=== PATIENT | female | born 1945 | race Caucasian/White ===

== ENCOUNTER 2023-09-20 20:21 | Inpatient (IN) | payer MEDICAID, MEDICARE ==
[~2023-09-20] VITALS: Ht 142.2 cm; Wt 124.7 kg
[2023-09-20 20:22] VITALS: BP 130/60; PULSE 100; RESP 24; TEMP 98.3; O2SAT 94
[2023-09-20 22:04] LABS: BASOPHILS % (AUTO) 0.4 % (0.0-2.0); EOSINOPHILS # (AUTO) 0.2 K/uL (0-0.4); EOSINOPHILS % (AUTO) 2.5 % (0.0-4.0); HEMATOCRIT 34.9 % (36-48); HEMOGLOBIN 11.6 g/dL (12.0-16.0); LYMPHOCYTES # (AUTO) 1.7 K/uL (2.5-16.5); MEAN CORPUSCULAR HEMOGLOBIN 30 pg (27-31); MEAN CORPUSCULAR HGB CONC 33 g/dL (33-37); MEAN CORPUSCULAR VOLUME 91.6 fL (80-94); MONOCYTES # (AUTO) 0.6 K/uL (0.8-1.0); MONOCYTES % (AUTO) 8.4 % (1.7-9.3); NEUTROPHILS % (AUTO) 66.7 % (42.2-75.2); PLATELET COUNT (AUTO) 268 K/uL (140-450); RED BLOOD CELL COUNT(AUTO) 3.81 MIL/uL (4.20-5.40); RED CELL DISTRIBUTION WIDTH 13.8 % (11.6-13.7); WHITE BLOOD COUNT (AUTO) 7.5 K/uL (4.8-10.8)
[2023-09-20 22:17] LABS: ALANINE AMINOTRANSFERASE 16 U/L (12-78); ALBUMIN 3.4 g/dL (3.4-5.0); ALKALINE PHOSPHATASE 101 U/L (50-136); ANION GAP 13.6 (8-16); ASPARTATE AMINOTRANSFERASE 18 U/L (15-37); CALCIUM 8.5 mg/dL (8.5-10.1); CARBON DIOXIDE 29.1 mmol/L (21-32); CHLORIDE 101 mmol/L (98-107); GLUCOSE 126 mg/dL (74-106); POTASSIUM 3.7 mmol/L (3.5-5.1); SODIUM SERUM 140 mmol/L (136-145); TOTAL BILIRUBIN 0.7 mg/dL (0.0-1.0); TOTAL PROTEIN, SERUM 7.8 g/dL (6.4-8.2); UREA NITROGEN, BLOOD 16 mg/dL (7-18)
[2023-09-21] MEDS ORDERED: KETOROLAC 30 MG/ML VIAL IVP ONE (01:05)
[2023-09-21 01:22] LABS: LACTIC ACID 1.4 mmol/L (0.4-2.0)
[2023-09-21] MEDS ORDERED: ceFAZolin 1,000 MG VIAL ONE (01:24)
[2023-09-21] MEDS ORDERED: CARV12.5 PO (03:10)
[2023-09-21] MEDS ORDERED: ATOR10TA PO (03:10)
[2023-09-21] MEDS ORDERED: OXYB10TA2 PO (03:10)
[2023-09-21] MEDS ORDERED: AMLO5TAB PO (03:10)
[2023-09-21] MEDS ORDERED: ZIPR20CA1 PO (03:10)
[2023-09-21] MEDS ORDERED: POTA8TAB19 PO (03:10)
[2023-09-21] MEDS ORDERED: HYDR10TA1 PO (03:10)
[2023-09-21] MEDS ORDERED: FURO-570 PO (03:10)
[2023-09-21] MEDS ORDERED: ACET-2619 PO (03:10)
[2023-09-21] MEDS ORDERED: guaiFENesin DM 200/20 MG-10 ML 10 ML UDC PO PRN (05:00)
[2023-09-21] MEDS ORDERED: ACETAMINOPHEN 325 MG TAB PO PRN (05:00)
[2023-09-21] MEDS ORDERED: NACL 0.9% 1,000 ML IV SCH (05:00)
[2023-09-21] MEDS ORDERED: POTASSIUM CHLORIDE 10 MEQ TABER PO PRN (05:00)
[2023-09-21] MEDS ORDERED: HYDROcodone/APAP 7.5/325 MG 1 TAB PO PRN (05:00)
[2023-09-21] MEDS ORDERED: ONDANSETRON 4 MG/2 ML VIAL IM/IVP PRN (05:00)
[2023-09-21] MEDS ORDERED: DOCUSATE SODIUM 100 MG GELCAP PO PRN (05:00)
[2023-09-21] MEDS ORDERED: ZOLPIDEM 5 MG TAB PO PRN (05:00)
[2023-09-21] MEDS ORDERED: carvediloL 6.25 MG TAB PO SCH (09:00)
[2023-09-21] MEDS: PANTOPRAZOLE 40 MG TABEC PO SCH (09:08)
[2023-09-21] MEDS: ATORVASTATIN 20 MG TAB PO SCH (09:09)
[2023-09-21] MEDS: OXYBUTYNIN 5 MG TAB PO SCH ×2 (09:09→20:17)
[2023-09-21 16:00] VITALS: BP 122/60; PULSE 55; RESP 17; TEMP 97.1; O2SAT 97
[2023-09-21] MEDS ORDERED: ZIPRASIDONE 40 MG CAP PO SCH (17:00)
[2023-09-21] MEDS: ZIPRASIDONE 40 MG CAP PO SCH (17:52)
[2023-09-21 18:30] VITALS: PULSE 55; RESP 17; O2SAT 97
[2023-09-21 20:00] VITALS: BP 140/51; PULSE 55; RESP 18; TEMP 97.2; O2SAT 97
[2023-09-21] MEDS: DOXYCYCLINE 100 MG CAP PO SCH (20:17)
[2023-09-22 06:49] LABS: BASOPHILS # (AUTO) 0.1 K/uL (0.00-0.22); BASOPHILS % (AUTO) 0.8 % (0.0-2.0); EOSINOPHILS # (AUTO) 0.3 K/uL (0-0.4); EOSINOPHILS % (AUTO) 4.7 % (0.0-4.0); HEMOGLOBIN 11.1 g/dL (12.0-16.0); LYMPHOCYTES # (AUTO) 1.5 K/uL (2.5-16.5); LYMPHOCYTES % (AUTO) 22.4 % (20.5-51.1); MEAN CORPUSCULAR HEMOGLOBIN 31 pg (27-31); MEAN CORPUSCULAR HGB CONC 34 g/dL (33-37); MEAN CORPUSCULAR VOLUME 92.6 fL (80-94); MONOCYTES # (AUTO) 0.7 K/uL (0.8-1.0); MONOCYTES % (AUTO) 10.8 % (1.7-9.3); NEUTROPHILS # (AUTO) 4.1 K/uL (1.8-7.7); NEUTROPHILS % (AUTO) 61.3 % (42.2-75.2); PLATELET COUNT (AUTO) 259 K/uL (140-450); RED BLOOD CELL COUNT(AUTO) 3.56 MIL/uL (4.20-5.40); WHITE BLOOD COUNT (AUTO) 6.8 K/uL (4.8-10.8)
[2023-09-22 07:08] LABS: ALANINE AMINOTRANSFERASE 16 U/L (12-78); ALBUMIN 2.8 g/dL (3.4-5.0); ALKALINE PHOSPHATASE 77 U/L (50-136); ANION GAP 11.5 (8-16); ASPARTATE AMINOTRANSFERASE 18 U/L (15-37); CALCIUM 8.4 mg/dL (8.5-10.1); CARBON DIOXIDE 29.3 mmol/L (21-32); CHLORIDE 104 mmol/L (98-107); CREATININE 0.9 mg/dL (0.6-1.3); GLUCOSE 96 mg/dL (74-106); POTASSIUM 3.8 mmol/L (3.5-5.1); SODIUM SERUM 141 mmol/L (136-145); TOTAL BILIRUBIN 0.5 mg/dL (0.0-1.0); TOTAL PROTEIN, SERUM 6.7 g/dL (6.4-8.2); UREA NITROGEN, BLOOD 14 mg/dL (7-18)
[2023-09-22 08:00] VITALS: BP 130/61; PULSE 58; RESP 20; TEMP 97; O2SAT 97
[2023-09-22] MEDS: ZIPRASIDONE 40 MG CAP PO SCH (08:17)
[2023-09-22] MEDS: ATORVASTATIN 20 MG TAB PO SCH (08:17)
[2023-09-22] MEDS: DOXYCYCLINE 100 MG CAP PO SCH (08:18)
[2023-09-22] MEDS: PANTOPRAZOLE 40 MG TABEC PO SCH (08:18)
[2023-09-22] MEDS: OXYBUTYNIN 5 MG TAB PO SCH (08:18)
[2023-09-22 08:35] VITALS: O2SAT 95
[2023-09-22] MEDS ORDERED: FUROSEMIDE 40 MG TAB PO SCH (09:00)
[2023-09-22] MEDS ORDERED: LOSARTAN 50 MG TAB PO SCH (09:00)
[2023-09-22] MEDS ORDERED: HYDROCORTISONE 10 MG TAB PO SCH (09:00)
[2023-09-22] MEDS ORDERED: CEPH-588 PO (12:38)
[2023-09-22] MEDS ORDERED: LOSA50TA57 PO (12:38)
[2023-09-22] MEDS ORDERED: DOXY-690 PO (12:38)
== END 2023-09-22 17:01 | DRG 383 ==
LOC: MED 20:21 → OBSVTOIN 09-21 05:08 → MTU 09-21 05:08
PROVIDERS: ADMIT Student in an Organized Health Care Education/Training Program; ATTEND Student in an Organized Health Care Education/Training Program
DX: L03.116 Cellulitis of left lower limb (principal); R65.10 Systemic inflammatory response syndrome (SIRS) of non-infectious origin without acute organ dysfunction; E44.1 Mild protein-calorie malnutrition; E83.51 Hypocalcemia; Z68.44 Body mass index [BMI] 60.0-69.9, adult; E11.9 Type 2 diabetes mellitus without complications; E66.9 Obesity, unspecified; I10 Essential (primary) hypertension; Z98.891 History of uterine scar from previous surgery
CPT/HCPCS: 36415; 71045; 80053; 83605; 83880; 84484; 85025; 85651; 86140; 87040; 87081; 93005; 93970; 96365; 96375; 97110; 97112; 97116; 97530; 99285; J0690; J1644; J1885; J7060; Q0092

== ENCOUNTER 2023-10-08 18:02 | Inpatient (IN) | payer MEDICAID, MEDICARE ==
[~2023-10-08] VITALS: Ht 154.9 cm; Wt 113.4 kg
[~2023-10-08 18:02] MED LIST: ACET-2619 PO; ATOR10TA PO; CEPH-588 PO; DOXY-690 PO; FURO-570 PO; HYDR10TA1 PO; LOSA50TA57 PO; OXYB10TA2 PO; POTA8TAB19 PO; ZIPR20CA1 PO
[2023-10-08 18:16] VITALS: BP 138/64; PULSE 72; RESP 14; TEMP 97.5; O2SAT 94
[2023-10-08] MEDS ORDERED: VANCOMYCIN 1,000 MG in DEXTROSE 5% 250 ML IV ONE (19:15)
[2023-10-08] MEDS ORDERED: FUROSEMIDE 40 MG/4 ML VIAL IVP ONE (19:20)
[2023-10-08] MEDS ORDERED: VANCOMYCIN 1,000 MG VIAL ONE (19:40)
[2023-10-08 19:56] LABS: BASOPHILS # (AUTO) 0.1 K/uL (0.00-0.22); BASOPHILS % (AUTO) 0.5 % (0.0-2.0); EOSINOPHILS # (AUTO) 0.4 K/uL (0-0.4); EOSINOPHILS % (AUTO) 3.8 % (0.0-4.0); HEMATOCRIT 34.2 % (36-48); HEMOGLOBIN 11.5 g/dL (12.0-16.0); LYMPHOCYTES # (AUTO) 0.7 K/uL (2.5-16.5); LYMPHOCYTES % (AUTO) 7.4 % (20.5-51.1); MEAN CORPUSCULAR HEMOGLOBIN 31 pg (27-31); MEAN CORPUSCULAR HGB CONC 34 g/dL (33-37); MEAN CORPUSCULAR VOLUME 91.8 fL (80-94); MONOCYTES # (AUTO) 0.4 K/uL (0.8-1.0); MONOCYTES % (AUTO) 4.6 % (1.7-9.3); NEUTROPHILS # (AUTO) 7.8 K/uL (1.8-7.7); NEUTROPHILS % (AUTO) 83.7 % (42.2-75.2); PLATELET COUNT (AUTO) 279 K/uL (140-450); RED BLOOD CELL COUNT(AUTO) 3.72 MIL/uL (4.20-5.40); WHITE BLOOD COUNT (AUTO) 9.3 K/uL (4.8-10.8)
[2023-10-08 20:15] LABS: ALANINE AMINOTRANSFERASE 16 U/L (12-78); ALBUMIN 3.1 g/dL (3.4-5.0); ALKALINE PHOSPHATASE 85 U/L (50-136); ANION GAP 8.5 (8-16); ASPARTATE AMINOTRANSFERASE 24 U/L (15-37); CALCIUM 8.8 mg/dL (8.5-10.1); CARBON DIOXIDE 30.3 mmol/L (21-32); CHLORIDE 96 mmol/L (98-107); GLUCOSE 162 mg/dL (74-106); SODIUM SERUM 132 mmol/L (136-145); TOTAL BILIRUBIN 1.2 mg/dL (0.0-1.0); TOTAL PROTEIN, SERUM 7.6 g/dL (6.4-8.2); UREA NITROGEN, BLOOD 14 mg/dL (7-18)
[2023-10-08 20:19] LABS: POTASSIUM 2.8 mmol/L (3.5-5.1)
[2023-10-08 20:24] LABS: CREATINE KINASE, TOTAL 98 U/L (26-192); LIPASE 24 U/L (16-77)
[2023-10-08 20:40] LABS: APPEARANCE,URINE CLEAR (CLEAR); BILIRUBIN,URINE NEGATIVE (NEGATIVE); BLOOD, URINE NEGATIVE (NEGATIVE); COLOR,URINE YELLOW (YELLOW); LEUKOCYTE ESTERASE ,URINE NEGATIVE (NEGATIVE); NITRITE, URINE NEGATIVE (NEGATIVE); PROTEIN,URINE NEGATIVE (NEGATIVE); UGLUCOSE NEGATIVE (NEGATIVE); UROBILINOGEN,URINE 0.2 EU/dL (0.2 - 1)
[2023-10-08] MEDS ORDERED: POTASSIUM CHLORIDE 10 MEQ TABER PO ONE (20:40)
[2023-10-08] MEDS ORDERED: POTASSIUM CHLORIDE 10 MEQ TABER PO PRN (22:05)
[2023-10-08] MEDS ORDERED: DOCUSATE SODIUM 100 MG GELCAP PO PRN (22:05)
[2023-10-08] MEDS ORDERED: ONDANSETRON 4 MG/2 ML VIAL IM/IVP PRN (22:05)
[2023-10-08] MEDS ORDERED: ZOLPIDEM 5 MG TAB PO PRN (22:05)
[2023-10-08] MEDS ORDERED: HYDROcodone/APAP 7.5/325 MG 1 TAB PO PRN (22:05)
[2023-10-08] MEDS ORDERED: guaiFENesin DM 200/20 MG-10 ML 10 ML UDC PO PRN (22:05)
[2023-10-08 22:40] VITALS: PULSE 74; RESP 74; O2SAT 94
[2023-10-08 22:47] VITALS: PULSE 87
[2023-10-08 23:00] VITALS: BP 107/51; PULSE 74; RESP 20; TEMP 96.8; O2SAT 94
[2023-10-08] MEDS: NACL 0.9% 1,000 ML IV SCH (23:30)
[2023-10-09] VITALS (7 sets, daily range): BP systolic 87–104; BP diastolic 38–48; PULSE 68–79; RESP 17–20; TEMP 97–98.3; O2SAT 93–95
[2023-10-09 06:43] LABS: BASOPHILS % (AUTO) 0.3 % (0.0-2.0); EOSINOPHILS # (AUTO) 0.2 K/uL (0-0.4); EOSINOPHILS % (AUTO) 3.6 % (0.0-4.0); HEMATOCRIT 31.7 % (36-48); HEMOGLOBIN 10.7 g/dL (12.0-16.0); LYMPHOCYTES # (AUTO) 0.5 K/uL (2.5-16.5); LYMPHOCYTES % (AUTO) 7.7 % (20.5-51.1); MEAN CORPUSCULAR HEMOGLOBIN 31 pg (27-31); MEAN CORPUSCULAR HGB CONC 34 g/dL (33-37); MEAN CORPUSCULAR VOLUME 91.1 fL (80-94); MONOCYTES # (AUTO) 0.4 K/uL (0.8-1.0); MONOCYTES % (AUTO) 6.2 % (1.7-9.3); NEUTROPHILS # (AUTO) 5.5 K/uL (1.8-7.7); NEUTROPHILS % (AUTO) 82.2 % (42.2-75.2); PLATELET COUNT (AUTO) 229 K/uL (140-450); RED BLOOD CELL COUNT(AUTO) 3.48 MIL/uL (4.20-5.40); RED CELL DISTRIBUTION WIDTH 13.8 % (11.6-13.7); WHITE BLOOD COUNT (AUTO) 6.6 K/uL (4.8-10.8)
[2023-10-09 07:05] LABS: ALANINE AMINOTRANSFERASE 14 U/L (12-78); ALBUMIN 2.6 g/dL (3.4-5.0); ALKALINE PHOSPHATASE 64 U/L (50-136); ANION GAP 10.1 (8-16); ASPARTATE AMINOTRANSFERASE 21 U/L (15-37); CALCIUM 7.9 mg/dL (8.5-10.1); CARBON DIOXIDE 27.8 mmol/L (21-32); CHLORIDE 99 mmol/L (98-107); CREATININE 1.2 mg/dL (0.6-1.3); GLUCOSE 106 mg/dL (74-106); SODIUM SERUM 134 mmol/L (136-145); TOTAL BILIRUBIN 1.2 mg/dL (0.0-1.0); TOTAL PROTEIN, SERUM 6.2 g/dL (6.4-8.2); UREA NITROGEN, BLOOD 16 mg/dL (7-18)
[2023-10-09 07:18] LABS: POTASSIUM 2.9 mmol/L (3.5-5.1)
[2023-10-09] MEDS ORDERED: INSULIN LISPRO SLIDING SCALE 100 UNITS/ML VIAL SUBQ PRN (07:25)
[2023-10-09] MEDS ORDERED: DEXTROSE 50% 50 ML SYR IVP PRN (07:25)
[2023-10-09] MEDS: BLOOD GLUCOSE MONITORING 1 DEV DEV FS SCH ×4 (07:45→20:50)
[2023-10-09] MEDS ORDERED: POTASSIUM CHLORIDE 40 MEQ, LIDOCAINE 1% 25 MG in NACL 0.9% 250 ML IV SCH (08:00)
[2023-10-09] MEDS: LOSARTAN 50 MG TAB PO SCH (08:12)
[2023-10-09] MEDS: POTASSIUM CHLORIDE 10 MEQ TABER PO SCH (08:47)
[2023-10-09] MEDS: PANTOPRAZOLE 40 MG TABEC PO SCH (08:47)
[2023-10-09] MEDS: OXYBUTYNIN 5 MG TAB PO SCH ×2 (08:47→20:48)
[2023-10-09] MEDS ORDERED: ZIPRASIDONE 40 MG CAP PO SCH (09:00)
[2023-10-09] MEDS: FUROSEMIDE 40 MG TAB PO SCH (13:05)
[2023-10-09] MEDS: ATORVASTATIN 20 MG TAB PO SCH (20:48)
[2023-10-09] MEDS: ACETAMINOPHEN 325 MG TAB PO PRN (20:49)
[2023-10-09] MEDS: NACL 0.9% 1,000 ML IV SCH (21:58)
[2023-10-10] VITALS (7 sets, daily range): BP systolic 88–116; BP diastolic 39–51; PULSE 58–73; RESP 16–19; TEMP 97.5–98.7; O2SAT 92–96
[2023-10-10] MEDS ORDERED: NACL 0.9% 500 ML IV ONE (00:10)
[2023-10-10] MEDS: BLOOD GLUCOSE MONITORING 1 DEV DEV FS SCH ×4 (06:40→20:43)
[2023-10-10 07:08] LABS: BASOPHILS % (AUTO) 0.1 % (0.0-2.0); EOSINOPHILS # (AUTO) 0.2 K/uL (0-0.4); EOSINOPHILS % (AUTO) 3.2 % (0.0-4.0); HEMATOCRIT 30.3 % (36-48); HEMOGLOBIN 10.1 g/dL (12.0-16.0); LYMPHOCYTES # (AUTO) 0.8 K/uL (2.5-16.5); LYMPHOCYTES % (AUTO) 14.4 % (20.5-51.1); MEAN CORPUSCULAR HEMOGLOBIN 30 pg (27-31); MEAN CORPUSCULAR HGB CONC 33 g/dL (33-37); MEAN CORPUSCULAR VOLUME 91.4 fL (80-94); MONOCYTES # (AUTO) 0.4 K/uL (0.8-1.0); MONOCYTES % (AUTO) 7.2 % (1.7-9.3); NEUTROPHILS % (AUTO) 75.1 % (42.2-75.2); PLATELET COUNT (AUTO) 212 K/uL (140-450); RED BLOOD CELL COUNT(AUTO) 3.32 MIL/uL (4.20-5.40); RED CELL DISTRIBUTION WIDTH 13.7 % (11.6-13.7); WHITE BLOOD COUNT (AUTO) 5.3 K/uL (4.8-10.8)
[2023-10-10] MEDS: NACL 0.9% 1,000 ML IV SCH (07:25)
[2023-10-10] MEDS: ZIPRASIDONE 40 MG CAP PO SCH (08:56)
[2023-10-10] MEDS: FUROSEMIDE 40 MG TAB PO SCH (08:56)
[2023-10-10] MEDS: POTASSIUM CHLORIDE 10 MEQ TABER PO SCH (08:56)
[2023-10-10] MEDS: PANTOPRAZOLE 40 MG TABEC PO SCH (08:57)
[2023-10-10] MEDS: OXYBUTYNIN 5 MG TAB PO SCH ×2 (08:57→20:37)
[2023-10-10] MEDS: LOSARTAN 50 MG TAB PO SCH (09:00)
[2023-10-10 09:08] LABS: ALANINE AMINOTRANSFERASE 14 U/L (12-78); ALBUMIN 2.2 g/dL (3.4-5.0); ALKALINE PHOSPHATASE 63 U/L (50-136); ANION GAP 12.5 (8-16); ASPARTATE AMINOTRANSFERASE 18 U/L (15-37); CALCIUM 7.5 mg/dL (8.5-10.1); CARBON DIOXIDE 24.1 mmol/L (21-32); CHLORIDE 101 mmol/L (98-107); CREATININE 1.3 mg/dL (0.6-1.3); GLUCOSE 94 mg/dL (74-106); POTASSIUM 3.6 mmol/L (3.5-5.1); SODIUM SERUM 134 mmol/L (136-145); TOTAL BILIRUBIN 0.9 mg/dL (0.0-1.0); TOTAL PROTEIN, SERUM 5.8 g/dL (6.4-8.2); UREA NITROGEN, BLOOD 24 mg/dL (7-18)
[2023-10-10] MEDS: ATORVASTATIN 20 MG TAB PO SCH (20:37)
[2023-10-11] MEDS: NACL 0.9% 1,000 ML IV SCH ×2 (00:19→17:01)
[2023-10-11] MEDS: BLOOD GLUCOSE MONITORING 1 DEV DEV FS SCH ×4 (06:30→20:39)
[2023-10-11 07:08] LABS: BASOPHILS % (AUTO) 0.6 % (0.0-2.0); EOSINOPHILS # (AUTO) 0.1 K/uL (0-0.4); EOSINOPHILS % (AUTO) 1.3 % (0.0-4.0); HEMATOCRIT 31.4 % (36-48); HEMOGLOBIN 10.4 g/dL (12.0-16.0); LYMPHOCYTES # (AUTO) 0.9 K/uL (2.5-16.5); LYMPHOCYTES % (AUTO) 18.8 % (20.5-51.1); MEAN CORPUSCULAR HEMOGLOBIN 30 pg (27-31); MEAN CORPUSCULAR HGB CONC 33 g/dL (33-37); MEAN CORPUSCULAR VOLUME 91.3 fL (80-94); MONOCYTES # (AUTO) 0.5 K/uL (0.8-1.0); MONOCYTES % (AUTO) 9.9 % (1.7-9.3); NEUTROPHILS # (AUTO) 3.5 K/uL (1.8-7.7); NEUTROPHILS % (AUTO) 69.4 % (42.2-75.2); PLATELET COUNT (AUTO) 248 K/uL (140-450); RED BLOOD CELL COUNT(AUTO) 3.44 MIL/uL (4.20-5.40); RED CELL DISTRIBUTION WIDTH 13.5 % (11.6-13.7)
[2023-10-11 07:18] LABS: ALANINE AMINOTRANSFERASE 12 U/L (12-78); ALBUMIN 2.2 g/dL (3.4-5.0); ALKALINE PHOSPHATASE 61 U/L (50-136); ANION GAP 10.8 (8-16); ASPARTATE AMINOTRANSFERASE 15 U/L (15-37); CALCIUM 7.8 mg/dL (8.5-10.1); CHLORIDE 107 mmol/L (98-107); CREATININE 0.9 mg/dL (0.6-1.3); GLUCOSE 92 mg/dL (74-106); POTASSIUM 3.8 mmol/L (3.5-5.1); SODIUM SERUM 139 mmol/L (136-145); TOTAL BILIRUBIN 0.5 mg/dL (0.0-1.0); TOTAL PROTEIN, SERUM 5.9 g/dL (6.4-8.2); UREA NITROGEN, BLOOD 17 mg/dL (7-18)
[2023-10-11 08:00] VITALS: BP 120/51; PULSE 69; RESP 18; TEMP 98.3; O2SAT 97
[2023-10-11] MEDS: OXYBUTYNIN 5 MG TAB PO SCH ×2 (08:35→20:34)
[2023-10-11] MEDS: LOSARTAN 50 MG TAB PO SCH (08:35)
[2023-10-11] MEDS: PANTOPRAZOLE 40 MG TABEC PO SCH (08:36)
[2023-10-11] MEDS: ZIPRASIDONE 40 MG CAP PO SCH (08:36)
[2023-10-11] MEDS: FUROSEMIDE 40 MG TAB PO SCH (08:36)
[2023-10-11] MEDS: POTASSIUM CHLORIDE 10 MEQ TABER PO SCH (08:36)
[2023-10-11 18:00] VITALS: BP 114/51; PULSE 56; RESP 18; TEMP 96.5; O2SAT 96
[2023-10-11 20:00] VITALS: BP 115/51; PULSE 67; PULSE 69; RESP 18; TEMP 98.3; O2SAT 94; O2SAT 97
[2023-10-11] MEDS: ACETAMINOPHEN 325 MG TAB PO PRN (20:33)
[2023-10-11] MEDS: ATORVASTATIN 20 MG TAB PO SCH (20:34)
[2023-10-12 04:00] VITALS: BP 112/42; PULSE 56; RESP 17; TEMP 97.9; O2SAT 96
[2023-10-12 06:33] LABS: BASOPHILS % (AUTO) 0.2 % (0.0-2.0); EOSINOPHILS # (AUTO) 0.1 K/uL (0-0.4); EOSINOPHILS % (AUTO) 2.8 % (0.0-4.0); HEMATOCRIT 31.9 % (36-48); HEMOGLOBIN 10.6 g/dL (12.0-16.0); LYMPHOCYTES # (AUTO) 1.5 K/uL (2.5-16.5); LYMPHOCYTES % (AUTO) 29.4 % (20.5-51.1); MEAN CORPUSCULAR HEMOGLOBIN 30 pg (27-31); MEAN CORPUSCULAR HGB CONC 33 g/dL (33-37); MEAN CORPUSCULAR VOLUME 90.5 fL (80-94); MONOCYTES # (AUTO) 0.5 K/uL (0.8-1.0); MONOCYTES % (AUTO) 9.7 % (1.7-9.3); NEUTROPHILS # (AUTO) 2.9 K/uL (1.8-7.7); NEUTROPHILS % (AUTO) 57.9 % (42.2-75.2); PLATELET COUNT (AUTO) 265 K/uL (140-450); RED BLOOD CELL COUNT(AUTO) 3.53 MIL/uL (4.20-5.40); RED CELL DISTRIBUTION WIDTH 13.6 % (11.6-13.7)
[2023-10-12] MEDS: BLOOD GLUCOSE MONITORING 1 DEV DEV FS SCH ×3 (06:58→15:26)
[2023-10-12 07:12] LABS: ALANINE AMINOTRANSFERASE 11 U/L (12-78); ALBUMIN 2.3 g/dL (3.4-5.0); ALKALINE PHOSPHATASE 63 U/L (50-136); ANION GAP 12.1 (8-16); ASPARTATE AMINOTRANSFERASE 16 U/L (15-37); CALCIUM 8.2 mg/dL (8.5-10.1); CHLORIDE 107 mmol/L (98-107); CREATININE 0.9 mg/dL (0.6-1.3); GLUCOSE 88 mg/dL (74-106); POTASSIUM 4.1 mmol/L (3.5-5.1); SODIUM SERUM 140 mmol/L (136-145); TOTAL BILIRUBIN 0.3 mg/dL (0.0-1.0); UREA NITROGEN, BLOOD 14 mg/dL (7-18)
[2023-10-12] MEDS: POTASSIUM CHLORIDE 10 MEQ TABER PO SCH (08:18)
[2023-10-12] MEDS: FUROSEMIDE 40 MG TAB PO SCH (08:19)
[2023-10-12] MEDS: ZIPRASIDONE 40 MG CAP PO SCH (08:19)
[2023-10-12] MEDS: LOSARTAN 50 MG TAB PO SCH (08:19)
[2023-10-12] MEDS: OXYBUTYNIN 5 MG TAB PO SCH (08:19)
[2023-10-12] MEDS: PANTOPRAZOLE 40 MG TABEC PO SCH (08:20)
[2023-10-12] MEDS: NACL 0.9% 1,000 ML IV SCH (08:20)
[2023-10-12 09:04] VITALS: BP 139/40; PULSE 67; RESP 18; TEMP 97.3; O2SAT 96
[2023-10-12 09:07] VITALS: PULSE 67; RESP 18; O2SAT 96
[2023-10-12 10:05] VITALS: BP 139/50; PULSE 67; RESP 18; TEMP 97.3
[2023-10-12] MEDS ORDERED: CALCIUM GLUC 1 GM/50 mL NS BAG 50 ML IV SCH (10:10)
[2023-10-12] MEDS: ACETAMINOPHEN 325 MG TAB PO PRN (11:17)
[2023-10-12 16:38] VITALS: BP 139/50; PULSE 67; RESP 18; TEMP 97.7; O2SAT 96
== END 2023-10-12 16:35 | DRG 383 ==
LOC: MED 18:02 → MTU 22:03
PROVIDERS: ADMIT Student in an Organized Health Care Education/Training Program; ATTEND Student in an Organized Health Care Education/Training Program
DX: L03.116 Cellulitis of left lower limb (principal); E43 Unspecified severe protein-calorie malnutrition; E11.51 Type 2 diabetes mellitus with diabetic peripheral angiopathy without gangrene; I48.92 Unspecified atrial flutter; E83.51 Hypocalcemia; E88.09 Other disorders of plasma-protein metabolism, not elsewhere classified; D64.9 Anemia, unspecified; E66.01 Morbid (severe) obesity due to excess calories; E78.5 Hyperlipidemia, unspecified; L03.115 Cellulitis of right lower limb; I87.8 Other specified disorders of veins; R60.9 Edema, unspecified; E87.6 Hypokalemia; I10 Essential (primary) hypertension; Z68.42 Body mass index [BMI] 45.0-49.9, adult
CPT/HCPCS: 36415; 71045; 80053; 81003; 82550; 82553; 82948; 83605; 83690; 83735; 83880; 84484; 85025; 87040; 87081; 93005; 93970; 96365; 96366; 96375; 97112; 97116; 97530; 99285; J0610; J0696; J1815; J1940; J2001; J3370; J3480; J7030; J7060; Q0092

== ENCOUNTER 2024-03-26 06:23 | Emergency (ER) | payer MEDICARE, MEDICAID ==
[~2024-03-26] VITALS: Ht 157.5 cm; Wt 85.3 kg
[~2024-03-26 06:23] MED LIST changes: +ASPI81CT95 PO; -ATOR10TA PO; +ATOR40TA PO; +CALC-1646 PO; -CEPH-588 PO; -DOXY-690 PO; +FISH100053 PO; +MAGN400S60 PO; +SENN-72 PO
[2024-03-26 06:30] VITALS: BP 111/31; PULSE 62; RESP 16; TEMP 97.3; O2SAT 99
[2024-03-26 07:47] LABS: FLU A ANTIGEN negative (NEGATIVE); FLU B ANTIGEN negative (NEGATIVE)
[2024-03-26] MEDS ORDERED: AMOX-1230 PO (08:14)
[2024-03-26] MEDS ORDERED: LORA1T126 PO (08:14)
[2024-03-26 09:39] VITALS: BP 111/31; PULSE 62; RESP 16; TEMP 97.3; O2SAT 99
== END 2024-03-26 09:40 ==
LOC: MED 06:23
DX: J20.9 Acute bronchitis, unspecified (principal); Z20.822 Contact with and (suspected) exposure to COVID-19; I10 Essential (primary) hypertension; Z79.899 Other long term (current) drug therapy; Z79.82 Long term (current) use of aspirin
CPT/HCPCS: 71045; 87426; 87804; 99284; Q0092

== ENCOUNTER 2024-06-11 02:31 | Emergency (ER) | payer MEDICARE, MEDICAID ==
[~2024-06-11] VITALS: Ht 157.5 cm; Wt 92.1 kg
[~2024-06-11 02:31] MED LIST changes: +CEPH-588 PO; +LORA1T126 PO
[2024-06-11 02:46] VITALS: BP 142/63; PULSE 58; RESP 14; TEMP 97.8; O2SAT 98
[2024-06-11 03:38] LABS: BASOPHILS # (AUTO) 0.1 K/uL (0.00-0.22); BASOPHILS % (AUTO) 0.9 % (0.0-2.0); EOSINOPHILS # (AUTO) 0.4 K/uL (0-0.4); EOSINOPHILS % (AUTO) 5.8 % (0.0-4.0); HEMATOCRIT 34.2 % (36-48); HEMOGLOBIN 11.5 g/dL (12.0-16.0); LYMPHOCYTES # (AUTO) 2.6 K/uL (2.5-16.5); LYMPHOCYTES % (AUTO) 37.9 % (20.5-51.1); MEAN CORPUSCULAR HEMOGLOBIN 31 pg (27-31); MEAN CORPUSCULAR HGB CONC 34 g/dL (33-37); MEAN CORPUSCULAR VOLUME 90.8 fL (80-94); MONOCYTES # (AUTO) 0.7 K/uL (0.8-1.0); MONOCYTES % (AUTO) 9.5 % (1.7-9.3); NEUTROPHILS # (AUTO) 3.2 K/uL (1.8-7.7); NEUTROPHILS % (AUTO) 45.9 % (42.2-75.2); PLATELET COUNT (AUTO) 317 K/uL (140-450); RED BLOOD CELL COUNT(AUTO) 3.77 MIL/uL (4.20-5.40)
[2024-06-11 03:48] LABS: ANION GAP 10.9 (8-16); CALCIUM 9.1 mg/dL (8.5-10.1); CARBON DIOXIDE 28.5 mmol/L (21-32); CHLORIDE 96 mmol/L (98-107); CREATININE 0.9 mg/dL (0.6-1.3); GLUCOSE 92 mg/dL (74-106); POTASSIUM 3.4 mmol/L (3.5-5.1); SODIUM SERUM 132 mmol/L (136-145); UREA NITROGEN, BLOOD 16 mg/dL (7-18)
[2024-06-11 04:09] LABS: INR 1.01 (0.8-1.2); PARTIAL THROMBOPLASTIN TIME 24.3 secs (22-35.6); PROTHROMBIN TIME 10.6 secs (10.8-13.4)
[2024-06-11] MEDS: POTASSIUM CHLORIDE 10 MEQ TABER PO ONE (04:23)
[2024-06-11] MEDS: IBUPROFEN 600 MG TAB PO ONE (04:58)
[2024-06-11] MEDS: LIDOCAINE 5% 1 EA PATCH TP ONE (04:59)
[2024-06-11 06:10] VITALS: BP 137/71; PULSE 60; RESP 15; O2SAT 95
== END 2024-06-11 06:10 | disposition home or self-care (01) ==
LOC: MED 02:31
DX: R07.2 Precordial pain (principal); R06.02 Shortness of breath; M79.604 Pain in right leg; M79.605 Pain in left leg; R22.43 Localized swelling, mass and lump, lower limb, bilateral; E11.9 Type 2 diabetes mellitus without complications; I10 Essential (primary) hypertension; Z79.899 Other long term (current) drug therapy; Z79.82 Long term (current) use of aspirin
CPT/HCPCS: 36415; 71045; 80048; 83880; 84484; 85025; 85610; 85730; 93005; 99285; Q0092

== ENCOUNTER 2024-06-14 11:10 | Inpatient (IN) | payer MEDICARE, MEDICAID ==
[~2024-06-14] VITALS: Ht 152.4 cm; Wt 108.0 kg
[2024-06-14] VITALS (7 sets, daily range): BP systolic 123–137; BP diastolic 46–59; PULSE 53–61; RESP 16–20; TEMP 97.2–97.8; O2SAT 96–99
[2024-06-14 12:05] LABS: BASOPHILS # (AUTO) 0.1 K/uL (0.00-0.22); BASOPHILS % (AUTO) 1.1 % (0.0-2.0); EOSINOPHILS # (AUTO) 0.3 K/uL (0-0.4); EOSINOPHILS % (AUTO) 4.6 % (0.0-4.0); HEMATOCRIT 33.7 % (36-48); HEMOGLOBIN 11.2 g/dL (12.0-16.0); LYMPHOCYTES # (AUTO) 1.7 K/uL (2.5-16.5); LYMPHOCYTES % (AUTO) 28.3 % (20.5-51.1); MEAN CORPUSCULAR HEMOGLOBIN 30 pg (27-31); MEAN CORPUSCULAR HGB CONC 33 g/dL (33-37); MEAN CORPUSCULAR VOLUME 90.4 fL (80-94); MONOCYTES # (AUTO) 0.6 K/uL (0.8-1.0); MONOCYTES % (AUTO) 10.2 % (1.7-9.3); NEUTROPHILS # (AUTO) 3.3 K/uL (1.8-7.7); NEUTROPHILS % (AUTO) 55.8 % (42.2-75.2); PLATELET COUNT (AUTO) 300 K/uL (140-450); RED BLOOD CELL COUNT(AUTO) 3.72 MIL/uL (4.20-5.40); RED CELL DISTRIBUTION WIDTH 14.2 % (11.6-13.7); WHITE BLOOD COUNT (AUTO) 5.9 K/uL (4.8-10.8)
[2024-06-14 12:15] LABS: CALCIUM 8.5 mg/dL (8.5-10.1); CARBON DIOXIDE 28.8 mmol/L (21-32); CHLORIDE 94 mmol/L (98-107); CREATININE 0.8 mg/dL (0.6-1.3); GLUCOSE 102 mg/dL (74-106); POTASSIUM 3.8 mmol/L (3.5-5.1); SODIUM SERUM 129 mmol/L (136-145); UREA NITROGEN, BLOOD 13 mg/dL (7-18)
[2024-06-14 12:24] LABS: ALANINE AMINOTRANSFERASE 21 U/L (12-78); ALBUMIN 3.3 g/dL (3.4-5.0); ALKALINE PHOSPHATASE 73 U/L (50-136); ASPARTATE AMINOTRANSFERASE 26 U/L (15-37); BILIRUBIN,DIRECT 0.2 mg/dL (0.0-0.3); TOTAL BILIRUBIN 0.8 mg/dL (0.0-1.0)
[2024-06-14 12:37] LABS: INR 1.19 (0.8-1.2); PARTIAL THROMBOPLASTIN TIME 25.4 secs (22-35.6); PROTHROMBIN TIME 12.4 secs (10.8-13.4)
[2024-06-14] MEDS ORDERED: ceFAZolin 1,000 MG VIAL ONE (13:53)
[2024-06-14 14:30] LABS: APPEARANCE,URINE CLEAR (CLEAR); BILIRUBIN,URINE NEGATIVE (NEGATIVE); BLOOD, URINE NEGATIVE (NEGATIVE); COLOR,URINE YELLOW (YELLOW); LEUKOCYTE ESTERASE ,URINE NEGATIVE (NEGATIVE); NITRITE, URINE NEGATIVE (NEGATIVE); PH,URINE 6.5 (5.0-9.0); PROTEIN,URINE NEGATIVE (NEGATIVE); UGLUCOSE NEGATIVE (NEGATIVE); UROBILINOGEN,URINE 0.2 EU/dL (0.2 - 1)
[2024-06-14] MEDS ORDERED: ONDANSETRON 4 MG/2 ML VIAL IVP PRN (14:50)
[2024-06-14] MEDS ORDERED: LORazepam 1 MG TAB PO PRN (14:50)
[2024-06-14] MEDS ORDERED: HYDROcodone/APAP 5/325 MG 1 TAB TAB PO PRN (14:50)
[2024-06-14] MEDS ORDERED: CALC-1646 PO (14:55)
[2024-06-14] MEDS ORDERED: SENN-72 PO (14:55)
[2024-06-14] MEDS ORDERED: HYDR10TA1 PO (14:55)
[2024-06-14] MEDS ORDERED: ZIPR20CA1 PO (14:55)
[2024-06-14] MEDS ORDERED: OXYB10TA PO (14:55)
[2024-06-14] MEDS: FUROSEMIDE 40 MG TAB PO SCH (17:04)
[2024-06-14] MEDS: ACETAMINOPHEN 325 MG TAB PO PRN (17:39)
[2024-06-14] MEDS: ATORVASTATIN 20 MG TAB PO SCH (20:07)
[2024-06-14] MEDS: CALCIUM CARB/VIT-D 500 MG/200 IU 1 TAB PO SCH (20:07)
[2024-06-15] VITALS (10 sets, daily range): BP systolic 108–156; BP diastolic 48–64; PULSE 52–77; RESP 18; TEMP 97–98.3; O2SAT 97–100
[2024-06-15 05:37] LABS: BASOPHILS # (AUTO) 0.1 K/uL (0.00-0.22); BASOPHILS % (AUTO) 1.3 % (0.0-2.0); EOSINOPHILS # (AUTO) 0.3 K/uL (0-0.4); EOSINOPHILS % (AUTO) 5.8 % (0.0-4.0); HEMATOCRIT 34.7 % (36-48); HEMOGLOBIN 11.8 g/dL (12.0-16.0); LYMPHOCYTES # (AUTO) 1.5 K/uL (2.5-16.5); LYMPHOCYTES % (AUTO) 27.4 % (20.5-51.1); MEAN CORPUSCULAR HEMOGLOBIN 31 pg (27-31); MEAN CORPUSCULAR HGB CONC 34 g/dL (33-37); MEAN CORPUSCULAR VOLUME 91.9 fL (80-94); MONOCYTES # (AUTO) 0.6 K/uL (0.8-1.0); MONOCYTES % (AUTO) 10.7 % (1.7-9.3); NEUTROPHILS # (AUTO) 3.1 K/uL (1.8-7.7); NEUTROPHILS % (AUTO) 54.8 % (42.2-75.2); PLATELET COUNT (AUTO) 296 K/uL (140-450); RED BLOOD CELL COUNT(AUTO) 3.78 MIL/uL (4.20-5.40); RED CELL DISTRIBUTION WIDTH 14.4 % (11.6-13.7); WHITE BLOOD COUNT (AUTO) 5.6 K/uL (4.8-10.8)
[2024-06-15 06:25] LABS: ALANINE AMINOTRANSFERASE 20 U/L (12-78); ALBUMIN 3.2 g/dL (3.4-5.0); ALKALINE PHOSPHATASE 63 U/L (50-136); ANION GAP 11.7 (8-16); ASPARTATE AMINOTRANSFERASE 22 U/L (15-37); CALCIUM 9.2 mg/dL (8.5-10.1); CARBON DIOXIDE 26.8 mmol/L (21-32); CHLORIDE 99 mmol/L (98-107); CREATININE 0.7 mg/dL (0.6-1.3); GLUCOSE 90 mg/dL (74-106); POTASSIUM 3.5 mmol/L (3.5-5.1); SODIUM SERUM 134 mmol/L (136-145); TOTAL BILIRUBIN 0.8 mg/dL (0.0-1.0); TOTAL PROTEIN, SERUM 6.8 g/dL (6.4-8.2); UREA NITROGEN, BLOOD 12 mg/dL (7-18)
[2024-06-15] MEDS: LOSARTAN 50 MG TAB PO SCH (09:00)
[2024-06-15] MEDS: PANTOPRAZOLE 40 MG INJ VIAL IVP SCH (10:08)
[2024-06-15] MEDS: DOCUSATE SODIUM 100 MG GELCAP PO SCH (10:08)
[2024-06-15] MEDS ORDERED: DEXTROSE 50% 50 ML SYR IVP PRN ×2 (11:10→15:10)
[2024-06-15] MEDS: BLOOD GLUCOSE MONITORING 1 DEV DEV FS SCH (12:53)
[2024-06-15] MEDS: AMPICILLIN/SULBACTAM 1.5 GM in NACL 0.9% 50 ML IV SCH (13:17)
[2024-06-15] MEDS ORDERED: INSULIN LISPRO SLIDING SCALE 100 UNITS/ML VIAL SUBQ PRN (15:10)
[2024-06-15] MEDS ORDERED: BLOOD GLUCOSE MONITORING 1 DEV DEV FS SCH (16:30)
[2024-06-15] MEDS: POLYETHYLENE GLYCOL 17 GM/PKT PO SCH (21:00)
[2024-06-15] MEDS: GABAPENTIN 100 MG CAP PO SCH (21:21)
[2024-06-15] MEDS: hydrALAZINE 20 MG/ML VIAL IVP PRN (23:54)
[2024-06-16] VITALS (9 sets, daily range): BP systolic 122–163; BP diastolic 54–65; PULSE 46–62; RESP 18–19; TEMP 97.1–98.2; O2SAT 97–98
[2024-06-16 05:55] LABS: BASOPHILS # (AUTO) 0.1 K/uL (0.00-0.22); BASOPHILS % (AUTO) 0.7 % (0.0-2.0); EOSINOPHILS # (AUTO) 0.4 K/uL (0-0.4); EOSINOPHILS % (AUTO) 5.5 % (0.0-4.0); HEMATOCRIT 35.8 % (36-48); HEMOGLOBIN 11.8 g/dL (12.0-16.0); LYMPHOCYTES # (AUTO) 1.6 K/uL (2.5-16.5); LYMPHOCYTES % (AUTO) 21.1 % (20.5-51.1); MEAN CORPUSCULAR HEMOGLOBIN 31 pg (27-31); MEAN CORPUSCULAR HGB CONC 33 g/dL (33-37); MEAN CORPUSCULAR VOLUME 92.1 fL (80-94); MONOCYTES # (AUTO) 0.7 K/uL (0.8-1.0); MONOCYTES % (AUTO) 9.4 % (1.7-9.3); NEUTROPHILS # (AUTO) 4.7 K/uL (1.8-7.7); NEUTROPHILS % (AUTO) 63.3 % (42.2-75.2); PLATELET COUNT (AUTO) 273 K/uL (140-450); RED BLOOD CELL COUNT(AUTO) 3.88 MIL/uL (4.20-5.40); RED CELL DISTRIBUTION WIDTH 14.1 % (11.6-13.7); WHITE BLOOD COUNT (AUTO) 7.4 K/uL (4.8-10.8)
[2024-06-16 06:47] LABS: ALANINE AMINOTRANSFERASE 18 U/L (12-78); ALBUMIN 3.1 g/dL (3.4-5.0); ALKALINE PHOSPHATASE 64 U/L (50-136); ANION GAP 11.6 (8-16); ASPARTATE AMINOTRANSFERASE 24 U/L (15-37); CALCIUM 8.9 mg/dL (8.5-10.1); CARBON DIOXIDE 26.9 mmol/L (21-32); CHLORIDE 98 mmol/L (98-107); CREATININE 0.8 mg/dL (0.6-1.3); GLUCOSE 95 mg/dL (74-106); POTASSIUM 3.5 mmol/L (3.5-5.1); SODIUM SERUM 133 mmol/L (136-145); TOTAL BILIRUBIN 0.8 mg/dL (0.0-1.0); TOTAL PROTEIN, SERUM 6.8 g/dL (6.4-8.2); UREA NITROGEN, BLOOD 14 mg/dL (7-18)
[2024-06-16] MEDS: MAGNESIUM HYDROXIDE 2400 MG/30 ML UDC PO PRN (10:59)
[2024-06-16] MEDS: INSULIN LISPRO SLIDING SCALE 100 UNITS/ML VIAL SUBQ PRN (16:29)
[2024-06-16] MEDS: ZOLPIDEM 5 MG TAB PO PRN (20:27)
[2024-06-17] VITALS: BP 149/66; PULSE 52; RESP 18; TEMP 97.3; O2SAT 98
[2024-06-17 04:00] VITALS: BP 156/71; PULSE 51; RESP 18; TEMP 97.2; O2SAT 98
[2024-06-17 05:58] LABS: BASOPHILS # (AUTO) 0.1 K/uL (0.00-0.22); BASOPHILS % (AUTO) 0.8 % (0.0-2.0); EOSINOPHILS # (AUTO) 0.4 K/uL (0-0.4); EOSINOPHILS % (AUTO) 6.7 % (0.0-4.0); HEMATOCRIT 35.7 % (36-48); HEMOGLOBIN 11.8 g/dL (12.0-16.0); LYMPHOCYTES % (AUTO) 30.9 % (20.5-51.1); MEAN CORPUSCULAR HEMOGLOBIN 30 pg (27-31); MEAN CORPUSCULAR HGB CONC 33 g/dL (33-37); MEAN CORPUSCULAR VOLUME 91.8 fL (80-94); MONOCYTES # (AUTO) 0.7 K/uL (0.8-1.0); MONOCYTES % (AUTO) 11.1 % (1.7-9.3); NEUTROPHILS # (AUTO) 3.3 K/uL (1.8-7.7); NEUTROPHILS % (AUTO) 50.5 % (42.2-75.2); PLATELET COUNT (AUTO) 276 K/uL (140-450); RED BLOOD CELL COUNT(AUTO) 3.89 MIL/uL (4.20-5.40); RED CELL DISTRIBUTION WIDTH 14.6 % (11.6-13.7); WHITE BLOOD COUNT (AUTO) 6.5 K/uL (4.8-10.8)
[2024-06-17 06:46] LABS: ALANINE AMINOTRANSFERASE 20 U/L (12-78); ALKALINE PHOSPHATASE 64 U/L (50-136); ANION GAP 10.7 (8-16); ASPARTATE AMINOTRANSFERASE 26 U/L (15-37); CALCIUM 8.7 mg/dL (8.5-10.1); CARBON DIOXIDE 27.2 mmol/L (21-32); CHLORIDE 99 mmol/L (98-107); CREATININE 0.7 mg/dL (0.6-1.3); GLUCOSE 92 mg/dL (74-106); POTASSIUM 3.9 mmol/L (3.5-5.1); SODIUM SERUM 133 mmol/L (136-145); TOTAL BILIRUBIN 0.8 mg/dL (0.0-1.0); TOTAL PROTEIN, SERUM 6.8 g/dL (6.4-8.2); UREA NITROGEN, BLOOD 11 mg/dL (7-18)
[2024-06-17 08:00] VITALS: BP 138/51; PULSE 50; RESP 18; TEMP 96.6; O2SAT 100
[2024-06-17 12:00] VITALS: BP 141/60; PULSE 53; RESP 18; TEMP 97.4; O2SAT 99
== END 2024-06-17 17:55 | DRG 383 ==
LOC: MED 11:10 → MTU 15:14
PROVIDERS: ADMIT Student in an Organized Health Care Education/Training Program; ATTEND Student in an Organized Health Care Education/Training Program
DX: L03.116 Cellulitis of left lower limb (principal); I11.0 Hypertensive heart disease with heart failure; E44.1 Mild protein-calorie malnutrition; I50.9 Heart failure, unspecified; M94.0 Chondrocostal junction syndrome [Tietze]; E87.1 Hypo-osmolality and hyponatremia; E11.9 Type 2 diabetes mellitus without complications; Z79.82 Long term (current) use of aspirin; Z79.899 Other long term (current) drug therapy; Z68.42 Body mass index [BMI] 45.0-49.9, adult
CPT/HCPCS: 36415; 71045; 80048; 80053; 80076; 81003; 82948; 83605; 83880; 84484; 85025; 85610; 85730; 87040; 87081; 87086; 93005; 96365; 97110; 97116; 97163-GP; 97530; 99285; J0295; J0360; J0690; J1815; J2470